=== PATIENT | male | born 1990 | race Caucasian/White ===

== ENCOUNTER 2016-07-21 13:40 | Emergency (ER) | payer OTHER ==
[2016-07-21 14:14] VITALS: BP 105/64
--- NOTE | 2016-07-21 14:37 | UC ---
Ear Complaint HPI - HPI Summary HPI Summary: 26 yo male with left otalgia and decreased hearing x days mild URI symptoms - History of Current Complaint Chief Complaint: UCEar Stated Complaint: EAR COMPLAINT Hx Obtained From: Patient Onset/Duration: Gradual Onset, Lasting Days Severity Initially: Mild Severity Currently: Mild Pain Intensity: 3 Pain Scale Used: 0-10 Numeric Associated Signs/Symptoms: Positive: Hearing Loss, URI Symptoms - Allergies/Home Medications Allergies/Adverse Reactions: Allergies Allergy/AdvReac Type Severity Reaction Status Date / Time No Known Allergies Allergy Verified 07/21/16 14:10 PMH/Surg Hx/FS Hx/Imm Hx Previously Healthy: Yes - Surgical History Surgical History: Yes Surgery Procedure, Year, and Place: Appendectomy, 2006 - Family History Known Family History: Positive: Hypertension - Social History Alcohol Use: None Substance Use Type: None Smoking Status (MU): Never Smoked Tobacco - Immunization History Most Recent Influenza Vaccination: 2015 Most Recent Tetanus Shot: UTD Most Recent Pneumonia Vaccination: N/A Review of Systems Constitutional: Negative Skin: Negative Eyes: Negative ENT: Ear Ache Respiratory: Negative Cardiovascular: Negative Gastrointestinal: Negative Genitourinary: Negative Motor: Negative Neurovascular: Negative Musculoskeletal: Negative Neurological: Negative Psychological: Negative All Other Systems Reviewed And Are Negative: Yes Physical Exam Triage Information Reviewed: Yes Appearance: Well-Appearing, No Pain Distress, Well-Nourished Vital Signs: Initial Vital Signs Temp 98.4 F 07/21/16 14:11 Pulse 72 07/21/16 14:11 Resp 16 07/21/16 14:11 BP 105/64 07/21/16 14:11 Pulse Ox 99 07/21/16 14:11 Eyes: Positive: Conjunctiva Clear ENT: Positive: Pharynx normal, Nasal congestion, TM bulging - Left, TM red - left. Negative: Hearing grossly normal, Tonsillar swelling, Tonsillar exudate, Trismus, Muffled/hoarse voice Neck: Positive: Supple, Nontender, No Lymphadenopathy Respiratory: Positive: Lungs clear, Normal breath sounds, No respiratory distress Cardiovascular: Positive: RRR, No Murmur Bowel Sounds: Positive: Present Musculoskeletal: Positive: Strength Intact, ROM Intact Psychological Exam: Normal Skin Exam: Normal Ear Complaint Course/Dx - Differential Dx/Diagnosis Provider Diagnoses: left otitis media Discharge - Discharge Plan Condition: Stable Disposition: HOME Prescriptions: Amoxicillin (*) [Amoxicillin 875 MG (*)] 875 mg PO BID #20 tab Ibuprofen TAB* [Motrin TAB*] 600 mg PO Q6H PRN #40 tab PRN Reason: Pain Patient Education Materials: Otitis Media (ED) Referrals: No Primary Care Phys,NOPCP [Primary Care Provider] - Additional Instructions: recheck in 2-3 weeks if hearing not back to normal recheck for new or worsening symptoms
== END 2016-07-21 14:39 | disposition home or self-care (01) ==
LOC: UCCORT 13:40
DX: I10 Essential (primary) hypertension (principal); H66.92 Otitis media, unspecified, left ear
CPT/HCPCS: 99212; G0463

== ENCOUNTER 2016-08-14 11:21 | Emergency (ER) | payer OTHER ==
[2016-08-14 11:35] VITALS: BP 109/69
--- NOTE | 2016-08-14 11:47 | UC ---
Throat Pain/Nasal Denis HPI - HPI Summary HPI Summary: complaint of bilateral ear pain that started today nasal congestion for approx 3 days non productive cough sore throat feels fever several time of 100 recently finished a course of antibiotics approx 6 dyas ago for bilateral ear infection slight nausea but no vomiting, denies diarrhea taking ibuprofen dayquil and nyquil without relief - History of Current Complaint Chief Complaint: UCEar Stated Complaint: EAR PAIN Time Seen by Provider: 08/14/16 11:40 Hx Obtained From: Patient - Allergies/Home Medications Allergies/Adverse Reactions: Allergies Allergy/AdvReac Type Severity Reaction Status Date / Time No Known Allergies Allergy Verified 08/14/16 11:36 Home Medications: Home Medications Jabxyseosklbz-Mrcycabfcm-Svhri [Vicks Dayquil/Nyquil Cold] 2 tab PO Q4HR PRN 03/02 [History Confirmed 08/14/16] PMH/Surg Hx/FS Hx/Imm Hx Previously Healthy: Yes - Surgical History Surgical History: Yes Surgery Procedure, Year, and Place: Appendectomy, 2006 - Family History Known Family History: Positive: Hypertension Negative: Cardiac Disease, Diabetes - Social History Occupation: Employed Full-time Lives: With Family Alcohol Use: None Substance Use Type: None Smoking Status (MU): Never Smoked Tobacco - Immunization History Most Recent Influenza Vaccination: 2016 Most Recent Tetanus Shot: UTD Most Recent Pneumonia Vaccination: N/A Review of Systems Constitutional: Fever Skin: Negative Eyes: Negative ENT: Sore Throat, Ear Ache, Nasal Discharge Respiratory: Cough Cardiovascular: Negative Gastrointestinal: Negative Genitourinary: Negative Motor: Negative Neurovascular: Negative Musculoskeletal: Negative Neurological: Negative Psychological: Negative All Other Systems Reviewed And Are Negative: Yes Physical Exam Triage Information Reviewed: Yes Appearance: No Pain Distress, Well-Nourished Vital Signs: Initial Vital Signs Temp 98.9 F 08/14/16 11:33 Pulse 71 08/14/16 11:33 Resp 16 08/14/16 11:33 BP 109/69 08/14/16 11:33 Pulse Ox 99 08/14/16 11:33 Vital Signs Reviewed: Yes Eyes: Positive: Conjunctiva Clear ENT: Positive: Pharyngeal erythema, Nasal congestion, Nasal drainage, TM bulging - bilateral left> right, TM red - bilateral, Other: - slight maxillary sinus tenderness Neck: Positive: No Lymphadenopathy Respiratory: Positive: Lungs clear, Normal breath sounds, No respiratory distress, No accessory muscle use Cardiovascular: Positive: RRR, No Murmur, Pulses Normal Abdomen Description: Positive: Nontender Musculoskeletal: Positive: No Edema Neurological: Positive: Alert Psychological Exam: Normal Skin Exam: Normal Throat Pain/Nasal Course/Dx - Course Course Of Treatment: exam completed. treatment for otitis media failed with amoxicillin. will treat with augmenting and nasal decongestant, NSAIDS - Differential Dx/Diagnosis Differential Diagnosis/HQI/PQRI: Otitis Media, URI Provider Diagnoses: otitis media bilaterally. URI Discharge - Discharge Plan Condition: Stable Disposition: HOME Prescriptions: Amoxicillin/Clavulanate TAB* [Augmentin TAB 875*] 875 mg PO BID #20 tab Oxymetazoline 0.05% NASAL SPR* [Afrin 0.05% NASAL SPRAY*] 1 spray NASAL Q12H #1 btl Patient Education Materials: Otitis Media (ED) Referrals: No Primary Care Phys,NOPCP [Primary Care Provider] - Additional Instructions: Please start antibiotic as directed Increase fluids and rest Take acetaminophen or ibuprofen for fever or pain Please review your discharge instructions. If your symptoms do not improve please call your primary care provider or return to urgent care.
[2016-08-14] MEDS ORDERED: Ibuprofen TAB* 400 MG PO ONE (11:50)
== END 2016-08-14 12:13 | disposition home or self-care (01) ==
LOC: UCEAST 11:21
DX: H66.93 Otitis media, unspecified, bilateral (principal); J06.9 Acute upper respiratory infection, unspecified
CPT/HCPCS: 99212; A9270-GY; G0463

== ENCOUNTER 2016-10-16 17:17 | Emergency (ER) | payer OTHER ==
[2016-10-16 17:52] VITALS: BP 120/79
--- NOTE | 2016-10-16 17:58 | UC ---
Respiratory Complaint HPI - HPI Summary HPI Summary: 26 YEAR OLD MALE PRESENTS WITH SINUS CONGESTION, FEVER, AND SORE THROAT. - History of Current Complaint Chief Complaint: UCGeneralIllness Stated Complaint: COUGH, FEVER, DIZZINESS Time Seen by Provider: 10/16/16 17:57 Hx Obtained From: Patient Onset/Duration: Sudden Onset Severity Initially: Moderate Severity Currently: Moderate Pain Scale Used: 0-10 Numeric - 5 - Allergies/Home Medications Allergies/Adverse Reactions: Allergies Allergy/AdvReac Type Severity Reaction Status Date / Time No Known Allergies Allergy Verified 10/16/16 17:52 PMH/Surg Hx/FS Hx/Imm Hx Previously Healthy: Yes - Surgical History Surgical History: Yes Surgery Procedure, Year, and Place: Appendectomy, 2007 - Family History Known Family History: Positive: Hypertension Negative: Cardiac Disease, Diabetes - Social History Alcohol Use: None Substance Use Type: None Smoking Status (MU): Never Smoked Tobacco - Immunization History Most Recent Influenza Vaccination: 2015 Most Recent Tetanus Shot: UTD Most Recent Pneumonia Vaccination: N/A Review of Systems Constitutional: Negative Skin: Negative Eyes: Negative ENT: Sore Throat, Nasal Discharge, Sinus Congestion, Sinus Pain/Tenderness Respiratory: Negative Cardiovascular: Negative Gastrointestinal: Negative Genitourinary: Negative Motor: Negative Neurovascular: Negative Musculoskeletal: Negative Neurological: Negative Psychological: Negative All Other Systems Reviewed And Are Negative: Yes Physical Exam Triage Information Reviewed: Yes Vital Signs: Initial Vital Signs Temp 37.1 C 10/16/16 17:49 Pulse 66 10/16/16 17:49 Resp 14 10/16/16 17:49 BP 120/79 10/16/16 17:49 Pulse Ox 99 10/16/16 17:49 Eye Exam: Normal ENT: Positive: Pharyngeal erythema, Nasal congestion, Nasal drainage, Other: - BILATERAL MAXILLARY SINUS PRESSURE Dental Exam: Normal Neck exam: Normal Neck: Positive: 1 Respiratory Exam: Normal Cardiovascular Exam: Normal Abdominal Exam: Normal Musculoskeletal Exam: Normal Neurological Exam: Normal Psychological Exam: Normal Skin Exam: Normal UC Diagnostic Evaluation - Laboratory O2 Sat by Pulse Oximetry: 99 Respiratory Course/Dx - Differential Dx/Diagnosis Provider Diagnoses: SINUSITIS Discharge - Discharge Plan Condition: Stable Disposition: HOME Prescriptions: Amoxicillin/Clavulanate TAB* [Augmentin TAB 875*] 875 mg PO BID #20 tab LoraTADine TAB(NF) [Claritin 10 MG TAB(NF)] 10 mg PO DAILY #30 tab Magic M W2 Marco A/Maal/Nyst/Lido* 5 ml SWISH SPIT QID PRN #120 ml PRN Reason: Sore Throat guaiFENesin/CODIEN 100MG-10MG* [Robitussin AC 100Mg-10Mg*] 5 ml PO Q8H PRN #120 udc MDD 15 ML PRN Reason: Cough Patient Education Materials: Sinusitis (ED) Referrals: No Primary Care Phys,NOPCP [Primary Care Provider] -
== END 2016-10-16 18:29 | disposition home or self-care (01) ==
LOC: UCCORT 17:17
DX: J32.9 Chronic sinusitis, unspecified (principal)
CPT/HCPCS: 87651; 99212; G0463

== ENCOUNTER 2017-01-02 12:29 | Emergency (ER) | payer OTHER ==
[2017-01-02 14:43] VITALS: BP 102/68
--- NOTE | 2017-01-02 14:59 | UC ---
Abdominal Pain Male HPI - HPI Summary HPI Summary: Traveled to [facility] and had Diarrhea. Not treated in [place] but symptoms have persisted. Some blood with wiping but no blood or mucus in the stool - History of Current Complaint Chief Complaint: UCAbdominalPain Stated Complaint: STOMACH COMPLIANT Time Seen by Provider: 01/02/17 14:39 Hx Obtained From: Patient Onset/Duration: Sudden Onset - diarrhea, Lasting Days - 6, Worse Since - last 2 days. Timing: Intermittent Episodes Lasting: Severity Initially: Mild Severity Currently: Moderate Location: Diffuse Character: Cramping - with diarrhea Aggravating Factor(s): Nothing Alleviating Factor(s): Meds - OTC imodium Associated Signs And Symptoms: Positive: Nausea, Diarrhea. Negative: Diaphoresis, Fever, Vomiting - Allergies/Home Medications Allergies/Adverse Reactions: Allergies Allergy/AdvReac Type Severity Reaction Status Date / Time No Known Allergies Allergy Verified 01/02/17 14:43 PMH/Surg Hx/FS Hx/Imm Hx Respiratory History: Asthma - Surgical History Surgical History: Yes Surgery Procedure, Year, and Place: Appendectomy, 2006 - Family History Known Family History: Positive: Hypertension Negative: Cardiac Disease, Diabetes - Social History Occupation: Employed Full-time Lives: With Family Alcohol Use: None Substance Use Type: None Smoking Status (MU): Never Smoked Tobacco - Immunization History Most Recent Influenza Vaccination: 2016 Most Recent Tetanus Shot: UTD Most Recent Pneumonia Vaccination: N/A Review of Systems Gastrointestinal: Diarrhea, Nausea Is Patient Immunocompromised?: No All Other Systems Reviewed And Are Negative: Yes Physical Exam Triage Information Reviewed: Yes Appearance: No Pain Distress, Well-Nourished, Ill-Appearing - mild Vital Signs: Initial Vital Signs Temp 98.0 F 01/02/17 14:37 Pulse 65 01/02/17 14:37 Resp 16 01/02/17 14:37 BP 102/68 01/02/17 14:37 Pulse Ox 99 01/02/17 14:37 Vital Signs Reviewed: Yes Eyes: Positive: Conjunctiva Inflamed ENT: Positive: Pharynx normal, TMs normal Neck exam: Normal Respiratory Exam: Normal Cardiovascular Exam: Normal Abdomen Description: Positive: No Organomegaly, Soft. Negative: Nontender - mild discomfort with palpation but no discreet areas of tenderness Musculoskeletal Exam: Normal Neurological Exam: Normal Psychological Exam: Normal Skin Exam: Normal Abd Pain Male Course/Dx - Differential Dx/Clinical Impression Differential Diagnosis/HQI/PQRI: Diverticulitis, Hepatitis, Prostatitis Provider Diagnoses: Travelers diarrhea Discharge - Discharge Plan Condition: Stable Disposition: HOME Prescriptions: Ciprofloxacin TAB* [Cipro 500 MG TAB*] 500 mg PO BID #6 tab Patient Education Materials: Traveler's Diarrhea (ED), Loperamide (By mouth), Ciprofloxacin (By mouth) Referrals: No Primary Care Phys,NOPCP [Primary Care Provider] -
== END 2017-01-02 15:16 | disposition home or self-care (01) ==
LOC: UCCORT 12:29
DX: R19.7 Diarrhea, unspecified (principal); R11.0 Nausea; J45.909 Unspecified asthma, uncomplicated; Z90.89 Acquired absence of other organs
CPT/HCPCS: 99212; G0463

== ENCOUNTER 2017-01-09 20:34 | Emergency (ER) | payer OTHER ==
[2017-01-09 20:49] VITALS: BP 125/79
--- NOTE | 2017-01-09 21:04 | UC ---
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 Continued to work through the rest of the day. Pt just returned from [place] long [employer] [facility] [place] [facility], just finished antibiotic treatment for travelers diarrhea. Pt states he has history of migraine. Pt hit head this morning ~ 6 am. - History Of Current Complaint Chief Complaint: UCHeadInjury Stated Complaint: HEAD INJURY Time Seen by Provider: 01/09/17 20:44 Hx Obtained From: Patient Onset/Duration: Sudden Onset Severity Currently: Mild Severity Initially: Mild Character: Dull Aggravating Factor(s): Other - touch Alleviating Factor(s): Nothing Associated Signs And Symptoms: Positive: Nausea - Risk Factors SDH Risk Factor: Male - Allergies/Home Medications Allergies/Adverse Reactions: Allergies Allergy/AdvReac Type Severity Reaction Status Date / Time No Known Allergies Allergy Verified 01/02/17 14:43 Home Medications: Home Medications NK [No Home Medications Reported] 01/09/17 [History Confirmed 01/09/17] PMH/Surg Hx/FS Hx/Imm Hx Previously Healthy: Yes - Surgical History Surgical History: Yes Surgery Procedure, Year, and Place: Appendectomy, 2006 - Family History Known Family History: Positive: Hypertension Negative: Cardiac Disease, Diabetes - Social History Occupation: Employed Full-time Lives: With Family Alcohol Use: Rare Substance Use Type: None Smoking Status (MU): Never Smoked Tobacco Have You Smoked in the Last Year: No - Immunization History Most Recent Influenza Vaccination: 2015 Most Recent Tetanus Shot: UTD Most Recent Pneumonia Vaccination: N/A Vaccination Up to Date: Yes Review of Systems Constitutional: Negative Skin: Negative Eyes: Negative ENT: Negative Respiratory: Negative Cardiovascular: Negative Gastrointestinal: Negative Genitourinary: Negative Motor: Negative Neurovascular: Negative Musculoskeletal: Negative Neurological: Headache Psychological: Negative Is Patient Immunocompromised?: No All Other Systems Reviewed And Are Negative: Yes Physical Exam Triage Information Reviewed: Yes Appearance: Well-Appearing Vital Signs: Initial Vital Signs Temp 98.3 F 01/09/17 20:45 Pulse 47 01/09/17 20:45 Resp 18 01/09/17 20:45 BP 125/79 01/09/17 20:45 Pulse Ox 98 01/09/17 20:45 Vital Signs Reviewed: Yes Eye Exam: Normal Eyes: Positive: Other: - PERRLA ENT Exam: Normal Dental Exam: Normal Neck exam: Normal Respiratory Exam: Normal Cardiovascular Exam: Normal Musculoskeletal Exam: Normal Neurological Exam: Normal Neurological: Positive: Alert Psychological Exam: Normal Skin Exam: Normal Head Injury Course/Dx - Course Course Of Treatment: I discussed with the pt and pt's to monitor his symptoms and if they worsen then he needs to go to the ER. Pt verbalized understanding and agreed to plan of care. - Differential Dx/Diagnosis Differential Diagnosis/HQI/PQRI: Concussion Without LOC, Contusion, Intracranial Bleed, Skull Fracture Provider Diagnoses: head injury. contusion Discharge - Discharge Plan Condition: Stable Disposition: HOME Patient Education Materials: Head Injury (ED) Referrals: No Primary Care Phys,NOPCP [Primary Care Provider] - If Needed
== END 2017-01-09 21:32 | disposition home or self-care (01) ==
LOC: UCCORT 20:34
DX: S00.93XA Contusion of unspecified part of head, initial encounter (principal); W22.09XA Striking against other stationary object, initial encounter; Y92.9 Unspecified place or not applicable
CPT/HCPCS: 99211; G0463

== ENCOUNTER 2017-03-09 16:38 | Emergency (ER) | payer OTHER | END 2017-03-09 18:40 | disposition left against medical advice (07) | LOC: UCCORT 16:38 | DX: M54.9 Dorsalgia, unspecified (principal); Z53.21 Procedure and treatment not carried out due to patient leaving prior to being seen by health care provider ==

== ENCOUNTER 2017-08-25 19:09 | Emergency (ER) | payer OTHER ==
--- OUTSIDE RECORDS SUMMARY | 2017-08-25 20:03 | XMS REPORT ---
:1990 External Reference #:[id number] Author Organization [facility] Address [address] [place] [address] Phone [phone] Care Team Providers Name Role Phone Lida Sidhu PA Care Team Information Urgent Care Technician Unavailable Payers Type Date Identification Numbers Payment Provider Subscriber Commercial Effective: Policy Number: [id number] [facility] Karl Mendez 2017 PayID: [id number] [place] [address] Problems Date Description Provider Status Onset: 06/08/2017 Hypothyroidism Lida Sidhu PA Active Onset: 07/30/2017 Migraine without aura, not refractory Lida Sidhu PA Active Family History Date Family Member(s) Problem(s) Comments General Migraine General Heart Problems Father's side Mother Fibromyalgia Children 4 3 biological First Brother Testicular Cancer Social History Type Date Description Comments Education Ged Marital Status Lives With Lives With Children x 4 years Diet Healthy, Well Balanced Sleep Typically sleeps 5 hours a night 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 to 12 noon Hand Dominance Right-handed Abuse No history of abuse Cigarette Use Denies Cigarette Use ETOH Use Rarely consumes alcohol Recreational Drug Use Denies Drug Use Smoking Patient is a former smoker 1/2-1 PPD for a few years, quit age 17 Daily Caffeine Consumes on average 2 pots or more of coffee per day Enjoy Exercising Enjoys exercising Sun Exposure Uses sunscreen Seat Belt/Car Seat always uses seat belt Guns in Home Yes, Locked Up Smoke Alarms Yes smoke alarm Currently Active Patient is currently sexually active Age 1st [place] 11 Years Old # Partners in a Lifetime Partners 5-10 Sexual Hx text Heterosexual Allergies, Adverse Reactions, Alerts Date Description Reaction Status Severity Comments 03/08/2017 NKDA active Medications Medication Date Status Form Strength Qnty SIG Indications Ordering Provider Levothyroxine 06/09/ Active Tablets 75mcg 90tabs take one E03.9 Silcoff , Sodium 2018 tablet by Geovanni, mouth every M.D. morning on empty stomach for thyroid Tizanidine HCL 06/08/ Active Tablets 4mg 90tabs 1 tab by Boyd Alcantara 2018 mouth three Geovanni, times a day M.D. as needed for muscle spasms Hydrocodone-Horace 06/08/ Active Tablets 5-325mg 30tabs 1 tablet by Derek5 Quinton, taminophen 2018 mouth up to Geovanni, every 8 hours M.D. as needed for pain Ibuprofen 200 03/07/ Active Tablets 200mg prn Unknown 2017 Levothyroxine 04/16/ Hx Tablets 50mcg 90tabs take one E03.9 Silcoff, Sodium 2017 - tablet by Geovanni, 06/09/ mouth every M.D. 2018 morning on empty stomach for thyroid; blood test due June 2017 Levothyroxine 03/11/ Hx Tablets 25mcg 45tabs 1 every day Silcoff, Sodium 2017 - 20 minutes Geovanni 04/16/ before you M.D. 2018 eat for underactive thyroid. Medications Administered in Office Medication Date Status Form Strength Qnty SIG Indications Ordering Provider B12 Injection Administered Injection Hektor, 018 ALICE Hilton SC/Im Administered Injection Hektor, Injections 018 ALICE Hilton Immunizations CPT Code Status Date Vaccine Lot # U-Flu Given 11/29/2016 Influenza,Unspecified Vital Signs Date Vital Result Comment 08/02/2017 BP Systolic 116 mmHg BP Diastolic 72 mmHg Weight 167.00 lb 07/13/2017 BP Systolic 110 mmHg BP Diastolic 70 mmHg Weight 171.00 lb 06/08/2017 BP Systolic 120 mmHg BP Diastolic 78 mmHg Weight 181.00 lb 04/14/2017 BP Systolic 110 mmHg BP Diastolic 68 mmHg Weight 180.00 lb 03/08/2017 BP Systolic 122 mmHg BP Diastolic 64 mmHg Height 64.25 inches 5'4.25" Weight 174.00 lb BMI (Body Mass Index) 29.6 kg/m2 Results Test Date Test Result H/L Range Note Laboratory test finding 07/20/2017 Cortisol,Random 9.7 g/dL . 1, 2 Renin Plasma 1.452 ng/mL/hr 0.167-5.380 1, 3 Aldosterone 8.6 ng/dL 0.0-30.0 1, 4 21 Hydroxylase Antibodies < 1.0 U/mL . 1, 5 Acth,Plasma 37.1 pg/mL 7.2-63.3 1, 6 Iron & Iron Binding Capacity 07/14/2017 Iron 57 g/dL 50-212 Unsaturated Iron Binding 255 g/dL Total Iron Binding Capacity 312 g/dL 250-450 Transferrin 223 mg/dL 203-362 % Iron Saturation 18 % 15-55 Laboratory test finding 07/14/2017 Cyclic Citrullinated Pep <15.6 U 7 Igg Lead 07/14/2017 Lead,Venous, B 1.6 g/dL 0.0-4.9 8 Submitting Laboratory Phone [phone] Mojgan Tucker Comprehensive 07/14/2017 Ebv Capsid Ag IgG Ab Positive Negative Ebv Capsid Ag IgM Ab Negative Negative Mojgan-Tucker Nuclear Antigen Positive Negative Mojgan-Tucker Virus Interp See Comment 10 Laboratory test finding 07/14/2017 Lyme Disease Serology Negative Negative 11 Testosterone Total 378.52 ng/dL 240-950 Immunoglobulins Serum Quant 07/14/2017 Immunoglobulin G 1080 mg/dL 767 - 1590 12 Immunoglobulin M 47 mg/dL 37 - 286 Immunoglobulin A 219 mg/dL 61 - 356 Celiac Panel 07/14/2017 Tissue Transglutaminase IgA Ab <1.2 U/mL 13 Immunoglobulin A 210 mg/dL 61 - 356 Celiac Interpretation See Comment 14 Laboratory test finding 07/14/2017 Hemoglobin A1c (Glyco HGB) 5.1 % 4.0- 5.6 15 Vitamin D Total 25(Oh) 28.5 ng/mL 20-50 Cortisol 2.71 g/dL 16 Anti Nuclear Antibody 0.7 U 17 Comp Metabolic Panel 07/14/2017 Sodium 138 mmol/L Low 139-145 Potassium 4.0 mmol/L 3.5-5.0 Chloride 104 mmol/L 101-111 Co2 Carbon Dioxide 26 mmol/L 22-32 Anion Gap 8 mmol/L 2-11 Glucose 114 mg/dL High 70-100 Blood Urea Nitrogen 12 mg/dL 6-24 Creatinine 0.92 mg/dL 0.67-1.17 BUN/Creatinine Ratio 13.0 8-20 Calcium 9.1 mg/dL 8.6-10.3 Total Protein 6.5 g/dL 6.4-8.9 Albumin 4.2 g/dL 3.2-5.2 Globulin 2.3 g/dL 2-4 Albumin/Globulin Ratio 1.8 1-3 Total Bilirubin 0.50 mg/dL 0.2-1.0 Alkaline Phosphatase 44 U/L 34-104 Alt 23 U/L 7-52 Ast 22 U/L 13-39 Egfr Non- 98.0 >60 Egfr 126.0 >60 18 CBC Auto Diff 07/14/2017 White Blood Count 5.6 10^3/uL 3.5-10.8 Red Blood Count 4.98 10^6/uL 4.0-5.4 Hemoglobin 14.2 g/dL 14.0-18.0 Hematocrit 42 % 42-52 Mean Corpuscular Volume 84 fL 80-94 Mean Corpuscular Hemoglobin 29 pg 27-31 Mean Corpuscular HGB Conc 34 g/dL 31-36 Red Cell Distribution Width 13 % 10.5-15 Platelet Count 146 10^3/uL Low 150-450 Mean Platelet Volume 10.4 um3 7.4-10.4 Abs Neutrophils 2.7 10^3/uL 1.5-7.7 Abs Lymphocytes 2.0 10^3/uL 1.0-4.8 Abs Monocytes 0.5 10^3/uL 0-0.8 Abs Eosinophils 0.4 10^3/uL 0-0.6 Abs Basophils 0 10^3/uL 0-0.2 Abs Nucleated RBC 0 10^3/uL Granulocyte % 48.1 % 38-83 Lymphocyte % 36.5 % 25-47 Monocyte % 8.2 % High 0-7 Eosinophil % 6.6 % High 0-6 Basophil % 0.6 % 0-2 Nucleated Red Blood Cells % 0.1 Laboratory test finding 07/14/2017 Vitamin B12 310 pg/mL 180-914 19 Folic Acid (Folate) > 20.00 ng/mL >3.99 Laboratory test finding 06/28/2017 Thyroxine 8.63 g/mL 6.09-12.23 TSH (Thyroid Stim Horm) 0.62 mcIU/mL 0.34-5.60 T3 Total 1.08 ng/mL 0.87-1.78 Laboratory test finding 06/08/2017 TSH (Thyroid Stim Horm) 3.91 mcIU/mL 0.34-5.60 Thyroxine 5.79 g/mL Low 6.09-12.23 T3 Total 1.08 ng/mL 0.87-1.78 Laboratory test finding 04/15/2017 TSH (Thyroid Stim 13.17 mcIU/mL High 0.34-5.60 Horm) Thyroxine 5.99 g/mL Low 6.09-12.23 Comp Metabolic Panel 03/08/2017 Sodium 138 mmol/L 133-145 Potassium 4.9 mmol/L 3.5-5.0 Chloride 104 mmol/L 101-111 Co2 Carbon Dioxide 29 mmol/L 22-32 Anion Gap 5 mmol/L 2-11 Glucose 76 mg/dL 70-100 Blood Urea Nitrogen 12 mg/dL 6-24 Creatinine 1.14 mg/dL 0.67-1.17 BUN/Creatinine Ratio 10.5 8-20 Calcium 9.6 mg/dL 8.6-10.3 Total Protein 6.9 g/dL 6.4-8.9 Albumin 4.4 g/dL 3.2-5.2 Globulin 2.5 g/dL 2-4 Albumin/Globulin Ratio 1.8 1-3 Total Bilirubin 0.60 mg/dL 0.2-1.0 Alkaline Phosphatase 45 U/L 34-104 Alt 24 U/L 7-52 Ast 22 U/L 13-39 Egfr Non- 77.1 >60 Egfr 99.1 >60 20 CBC Auto Diff 03/08/2017 White Blood Count 5.5 10^3/uL 3.5-10.8 Red Blood Count 5.45 10^6/uL High 4.0-5.4 Hemoglobin 15.9 g/dL 14.0-18.0 Hematocrit 46 % 42-52 Mean Corpuscular Volume 84 fL 80-94 Mean Corpuscular Hemoglobin 29 pg 27-31 Mean Corpuscular HGB Conc 35 g/dL 31-36 Red Cell Distribution Width 13 % 10.5-15 Platelet Count 153 10^3/uL 150-450 Mean Platelet Volume 10 um3 7.4-10.4 Abs Neutrophils 2.4 10^3/uL 1.5-7.7 Abs Lymphocytes 2.1 10^3/uL 1.0-4.8 Abs Monocytes 0.6 10^3/uL 0-0.8 Abs Eosinophils 0.4 10^3/uL 0-0.6 Abs Basophils 0 10^3/uL 0-0.2 Abs Nucleated RBC 0 10^3/uL Granulocyte % 44.3 % 38-83 Lymphocyte % 38.1 % 25-47 Monocyte % 10.2 % High 1-9 Eosinophil % 6.5 % High 0-6 Basophil % 0.9 % 0-2 Nucleated Red Blood Cells % 0.1 Laboratory test finding 03/08/2017 TSH (Thyroid Stim 23.18 mcIU/mL High 0.34-5.60 Horm) T3 Free 3.20 pg/mL 2.5-3.9 Free T4 (Free Thyroxine) 0.65 ng/dL 0.61-1.12 Thyroxine 5.20 g/mL Low 6.09-12.23 1 R53.83, E27.49 2 Cortisol AM 6.2 - 19.4 Cortisol PM 2.3 - 11.9 Performed at: [address] [id number] Compressor Mechanic: Amanda Lujan MD, Phone: [phone] This test was developed and its performance characteristics determined by [facility]. It has not been cleared or approved by the Food and Drug Administration. Performed at: [facility] [address] [place] [id number] Compressor Mechanic: Benja Mcleod MD, Phone: [phone] Performed at: [address] [id number] Compressor Mechanic: Jason King MD, Phone: [phone] Performed at: [address] [id number] Compressor Mechanic: Amanda Lujan MD, Phone: [phone] This test was developed and its performance characteristics determined by [facility]. It has not been cleared or approved by the Food and Drug Administration. 5 Reference Range: All Ages: < 1.0 6 ACTH reference interval for samples collected between 7 and 10 AM. 7 REFERENCE VALUE <20.0 (Negative) Test Performed by: [address] [id number] 8 ADDITIONAL INFORMATION Testing performed by Inductively Coupled Plasma-Mass Spectrometry (ICP-MS). This test was developed and its performance characteristics determined by [facility] in a manner consistent with CLIA requirements. This test has not been cleared or approved by the U.S. Food and Drug Administration. 9 Test Performed by: [place] [address] 10 RESULT: Results suggest past infection. ADDITIONAL INFORMATION In most populations, at least 90% of the adult population will have been infected with EBV sometime in the past and therefore, will be positive for anti-VCA/IgG and anti- EBNA. Antibodies to EBNA develop 6-8 weeks after primary infection and remain present for life. Presence of VCA/ IgM antibodies indicates recent primary infection with EBV. Test Performed by: [facility] [place] [address] 11 No evidence of antibodies to B. burgdorferi detected. False negative results may occur in recently infected patients (<=2 weeks) due to low or undetectable antibody levels to B. burgdorferi. If recent exposure is suspected, a second sample should be collected and tested in 2-4 weeks. Test Performed by: [place] [address] 12 Test Performed by: [place] [address] 13 REFERENCE VALUE <4.0 (Negative) Test Performed by: [place] [address] 14 Negative serology. Celiac disease unlikely. However, approximately 10% of patients with celiac disease are seronegative. Also, patients who are already adhering to a gluten-free diet may be seronegative. If celiac disease is highly clinically suspected, consider HLA-DQ typing. Test Performed by: [place] [address] 15 Therapeutic target for the treatment of diabetes mellitus patients is <7% HBA1C, and in selective patients <6.0%. Please refer to [place] [employer] diabetic care guidelines for further information. 16 AM 8.7-22.4 PM <10 17 REFERENCE VALUE <=1.0 (Negative) Test Performed by: [facility] [address] [place] [address] 18 Because ethnic data is not always readily available, this report includes an eGFR for both -Americans and non- Americans. The National Kidney Disease Education Program (NKDEP) does not endorse the use of the MDRD equation for patients that are not between the ages of 18 and 70, are , have extremes of body size, muscle mass, or nutritional status, or are non- or non-. According to the National Kidney Foundation, irrespective of diagnosis, the stage of the disease is based on the level of kidney function: Stage Description GFR(mL/min/1.73 m(2)) 1 Kidney damage with normal or decreased GFR 90 2 Kidney damage with mild decrease in GFR 60-89 3 Moderate decrease in GFR 30-59 4 Severe decrease in GFR 15-29 5 Kidney failure <15 (or dialysis) 19 Normal Range 180 to 914 Indeterminate Range 145 to 180 Deficient Range <145 20 Because ethnic data is not always readily available, this report includes an eGFR for both -Americans and non- Americans. The National Kidney Disease Education Program (NKDEP) does not endorse the use of the MDRD equation for patients that are not between the ages of 18 and 70, are , have extremes of body size, muscle mass, or nutritional status, or are non- or non-. According to the National Kidney Foundation, irrespective of diagnosis, the stage of the disease is based on the level of kidney function: Stage Description GFR(mL/min/1.73 m(2)) 1 Kidney damage with normal or decreased GFR 90 2 Kidney damage with mild decrease in GFR 60-89 3 Moderate decrease in GFR 30-59 4 Severe decrease in GFR 15-29 5 Kidney failure <15 (or dialysis) Procedures Date CPT Code Description Status 08/02/2017 09706 SC/Im Injections Completed Encounters Type Date Location Provider CPT E/M Dx Office Visit 08/02/2017 4:30p [place] [address] R53.83 M35.7 E03.9 Office Visit 07/13/2017 2:00p [place] [address] R53.83 E03.9 R78.71 Office Visit 06/08/2017 1:40p [place] [address] M54.5 E03.9 Office Visit 04/14/2017 4:40p Main Office [place] Louis[facility] [place].A. [address]872 R94.6 R94.6 R53.83 R53.83 Office Visit 03/08/2017 9:40a Main Office Medina Louis P.A. [address]876 R53.83 D48.5 Z00.01 Z72.820 R94.6 Plan of Care 08/02/2017 - Lida Sidhu PAR53.83 Other fatigueComments:Severe fatigue of uncertain etiology. Lab workup thus far has been normal. B12 was low normal despite oral supplements so B12 injections was given today. Will refer for sleep study to r/o apnea or other sleep disorder which may be contributing to daytime fatigue. Will also refer to rheumatology due tohypermobility hx, r/o autoimmune disorder.Referral:Fidel Thrasher M.D., [id number] Hypermobility syndromeComments:See #1Referral:Fidel Thrasher M.D., [id number] Hypothyroidism, unspecifiedComments:Recent TSH in normal range. Continue same dose of levothyroxine.
[2017-08-25 20:06] VITALS: BP 120/67
[2017-08-25] MEDS ORDERED: Amoxicillin PO (*) 500 MG CAP PO ONE (20:12)
[2017-08-25] MEDS ORDERED: HYDROcodone/ACETAMIN 5-325 MG* 1 TAB PO ONE (20:13)
--- NOTE | 2017-08-25 20:15 | UC ---
[facility] HPI - HPI Summary HPI Summary: painful teeth number 8 and 9---with red swollen and tender gums - History of Current Complaint Chief Complaint: UCDentalProblem Stated Complaint: DENTAL COMPLAINT Time Seen by Provider: 08/25/17 20:07 Hx Obtained From: Patient Onset/Duration: Sudden Onset, Lasting Days - 2, Still Present Severity: Moderate Alleviating Factor(s): Topical Meds Related History: Previous Dental Care on Same Tooth, Swelling - Allergies/Home Medications Allergies/Adverse Reactions: Allergies Allergy/AdvReac Type Severity Reaction Status Date / Time No Known Allergies Allergy Verified 08/25/17 20:06 Home Medications: Home Medications Ibuprofen TAB* [Motrin TAB* 800 MG] 800 mg PO Q6H 08/25/17 [History Confirmed ] Levothyroxine TAB* [Synthroid TAB*] 75 mcg PO 0800 08/25/17 [History Confirmed 08/25/17] PMH/Surg Hx/FS Hx/Imm Hx Previously Healthy: No Endocrine History: Hypothyroidism - Surgical History Surgical History: Yes Surgery Procedure, Year, and Place: Appendectomy 2006 - Family History Known Family History: Positive: Hypertension Negative: Cardiac Disease, Diabetes - Social History Occupation: Employed Full-time Lives: With Family Alcohol Use: Rare Substance Use Type: None Smoking Status (MU): Never Smoked Tobacco Have You Smoked in the Last Year: No - Immunization History Most Recent Influenza Vaccination: 2015 Most Recent Tetanus Shot: UTD Most Recent Pneumonia Vaccination: N/A Vaccination Up to Date: Yes Review of Systems Constitutional: Negative Skin: Negative Eyes: Negative ENT: Dental Pain Respiratory: Negative Cardiovascular: Negative Gastrointestinal: Negative Genitourinary: Negative Motor: Negative Neurovascular: Negative Musculoskeletal: Negative Neurological: Negative Psychological: Negative Is Patient Immunocompromised?: No All Other Systems Reviewed And Are Negative: Yes Physical Exam Triage Information Reviewed: Yes Appearance: Well-Appearing, No Pain Distress, Well-Nourished Vital Signs: Initial Vital Signs Temp 98.3 F 08/25/17 20:01 Pulse 60 08/25/17 20:01 Resp 18 08/25/17 20:01 BP 120/67 08/25/17 20:01 Pulse Ox 100 08/25/17 20:01 Vital Signs Reviewed: Yes Eye Exam: Normal Eyes: Positive: Conjunctiva Clear ENT Exam: Normal ENT: Positive: Normal ENT inspection, Hearing grossly normal, Pharynx normal, TMs normal, Dental tenderness, Uvula midline. Negative: Nasal congestion, Trismus, Muffled voice, Hoarse voice, Sinus tenderness Dental Exam: Normal Dental: Positive: Percussion Tenderness @ - 8/9, Abscess @ - above 8/9 Neck exam: Normal Neck: Positive: Supple, Nontender, No Lymphadenopathy Respiratory Exam: Normal Respiratory: Positive: Chest non-tender, No respiratory distress, No accessory muscle use Cardiovascular Exam: Normal Cardiovascular: Positive: RRR, Pulses Normal, Brisk Capillary Refill Musculoskeletal Exam: Normal Musculoskeletal: Positive: Strength Intact, ROM Intact, No Edema Neurological Exam: Normal Neurological: Positive: Alert, Muscle Tone Normal Psychological Exam: Normal Skin Exam: Normal Dental Complaint Course/Dx - Course Course Of Treatment: Amoxicillin, hydrocodone, warm saltwater rinses, follow with dentist AUNG recheck when necessary - Differential Dx/Diagnosis Provider Diagnoses: dental pain with abcess number 8&9 Discharge - Sign-Out/Discharge Documenting (check all that apply): Patient Departure - Discharge Plan Condition: Stable Disposition: HOME Prescriptions: Amoxicillin PO (*) [Amoxicillin 500 MG CAP*] 500 mg PO TID #30 cap Hydrocodone/Acetaminophen [Hydrocodone-Acetamin 5-325 mg] 1 each PO Q6H PRN #10 tablet MDD 4 PRN Reason: pain Patient Education Materials: Dental Abscess (ED) Referrals: Lida Ro [Primary Care Provider] - Additional Instructions: Follow with Dentist aung-- - Billing Disposition and Condition Condition: STABLE Disposition: Home
[2017-08-25] MEDS: Amoxicillin PO (*) 500 MG CAP PO ONE (20:30)
== END 2017-08-25 20:34 | disposition home or self-care (01) ==
LOC: UCCORT 19:09
DX: K04.7 Periapical abscess without sinus (principal); K08.89 Other specified disorders of teeth and supporting structures; E03.9 Hypothyroidism, unspecified
CPT/HCPCS: 99213; A9270-GY; G0463

== ENCOUNTER 2017-11-11 12:36 | Emergency (ER) | payer OTHER ==
--- NOTE | 2017-11-11 13:57 | UC ---
Back Pain HPI - HPI Summary HPI Summary: Pt present with recurrence of sacral back pain. 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 Pt states intermittently has flares. States this starte d 3 days ago - no leg weakness, bowel/bladder changes. mild paresthesia left leg. No falls. no direct trauma.no analgesia taken. Pt with appt with pcp next Tuesday. Pt states has applied heat without relief drive self here Pt's medications reviewed this visit - History of Current Complaint Stated Complaint: BACK PAIN Time Seen by Provider: 11/11/17 13:52 Hx Obtained From: Patient, Other: - istop checked - Allergies/Home Medications Allergies/Adverse Reactions: Allergies Allergy/AdvReac Type Severity Reaction Status Date / Time No Known Allergies Allergy Verified 11/11/17 14:16 PMH/Surg Hx/FS Hx/Imm Hx Previously Healthy: Yes - Surgical History Surgical History: Yes Surgery Procedure, Year, and Place: Appendectomy 2006 - Family History Known Family History: Positive: Hypertension Negative: Cardiac Disease, Diabetes - Social History Occupation: Employed Full-time Lives: With Family Alcohol Use: Rare Substance Use Type: None Smoking Status (MU): Never Smoked Tobacco Have You Smoked in the Last Year: No - Immunization History Most Recent Influenza Vaccination: 2016 Most Recent Tetanus Shot: UTD Most Recent Pneumonia Vaccination: N/A Vaccination Up to Date: Yes Review of Systems Constitutional: Negative Skin: Negative Musculoskeletal: Other: - back, sacral pain Neurological: Paresthesia - LLE All Other Systems Reviewed And Are Negative: No Physical Exam - Summary Physical Exam Summary: Vital Signs Reviewed: Yes A+Ox3, no distress Eyes: Conjunctiva Clear, ANGEL LUIS. EOM intact and full ENT: Hearing grossly normal TM x 2 clear, mmoist, uvula midline, no exudate, no erythema Neck: Positive: Supple Respiratory: Positive: No respiratory distress, No accessory muscle use + CTA throughout no w/r Cardiovascular: RRR nl s1, s2 no m/r CBT <2 sec 2+ PT b/l abd soft + BS nt/nd no guarding, no distension Musculoskeletal Exam: No spinous process pain c/t/l/sl full AROM c spine + TTP left low sacral area paraspinal + SLE b/l + flex/ext knee, ankle Neurological: Positive: Alert, + sensation throughout b./l equal 2+ patellar b/ l without clonus Psychological: Positive: Normal Response To Family Skin: Positive: no rash, no ecchymosis Triage Information Reviewed: Yes Back Pain Course/Dx - Course Course Of Treatment: Pt with recurrent sacral pain. Pt csm intact. reports parethesia left leg. pt drove self to [facility]. declined toradol. motrin. heat. stretch. flexeril - strict precaution. pt declined work note. pcp f/u next tue. return to ED precautions given - Differential Dx/Diagnosis Provider Diagnoses: back muscle spasm with paresthesia LLE Discharge - Sign-Out/Discharge Documenting (check all that apply): Patient Departure All imaging exams completed and their final reports reviewed: No Studies - Discharge Plan Condition: Stable Disposition: HOME Prescriptions: Cyclobenzaprine TAB* [Flexeril 10 MG TAB*] 10 mg PO BID PRN #10 tab PRN Reason: muscle spasm Patient Education Materials: Acute Low Back Pain (ED), Lumbar Radiculopathy (ED ) Referrals: Nahum SORENSEN,Lida Rosas [Primary Care Provider] - Additional Instructions: - Okay to alternate ibuprofen (Advil, Motrin) 600mg and Tylenol product (Tylenol ) every 3hours as needed for pain. Take with food. Do NOT take for more than 4- 5 days. -Take flexeril - muscle relaxer as prescribed - do not drive, operate machinery or drink alcohol while taking this medication as it may cause sedation -Apply moist heat to your back for 20 minutes at a time, 4-5 times a day. Once your muscles are warm, slow gentle stretching exercises are important - When lying on your back, place a pillow under your knees. If you are on your side, place a pillow between your knees - You have been referred to physical therapy - you may take this referral to any physical therapy provider -Contact your doctor today to arrange a follow-up appointment next week. -If you pain is uncontrolled, leg weakness, or you lose control of your bladder - go immediately to an emergency department for further treatment - Keep your appointment as scheduled with your primary doctor on Tuesday. - Billing Disposition and Condition Condition: STABLE Disposition: Home
[2017-11-11] MEDS ORDERED: Ketorolac INJ* 30 MG/ML 1 ML VIAL IM ONE (14:07)
[2017-11-11 14:16] VITALS: BP 109/79
[2017-11-11] MEDS ORDERED: Ibuprofen TAB* 400 MG PO ONE (14:20)
== END 2017-11-11 14:59 | disposition home or self-care (01) ==
LOC: UCCORT 12:36
DX: M62.830 Muscle spasm of back (principal); R20.2 Paresthesia of skin
CPT/HCPCS: 99212; A9270-GY; G0463

== ENCOUNTER 2018-01-14 12:56 | Emergency (ER) | payer OTHER ==
[2018-01-14 14:02] VITALS: BP 119/72
[2018-01-14] MEDS ORDERED: predniSONE TAB* 20 MG PO ONE (14:15)
--- NOTE | 2018-01-14 14:20 | ED ---
Skin Complaint - HPI Summary HPI Summary: 27 yr old male with the complaint of rash on trunk, arms, and lower left side of lip with some swelling. The patient states his mother in law changed the dryer sheets a week ago and this seemed to activate the present issue. No SOB, no tongue or throat swelling. - History of Current Complaint Chief Complaint: UCRash Time Seen by Provider: 01/14/18 13:59 Stated Complaint: SKIN CONCERN Pain Intensity: 0 - Allergy/Home Medications Allergies/Adverse Reactions: Allergies Allergy/AdvReac Type Severity Reaction Status Date / Time No Known Allergies Allergy Verified 01/14/18 14:03 PMH/Surg Hx/FS Hx/Imm Hx Endocrine/Hematology History: Reports: Hx Thyroid Disease - hypothyroidism Denies: Hx Diabetes Cardiovascular History: Denies: Hx Hypertension, Hx Pacemaker/ICD Respiratory History: Reports: Hx Asthma - as child History: Denies: Hx Dialysis, Hx Renal Disease Sensory History: Denies: Hx Hearing Aid Psychiatric History: Denies: Hx Panic Disorder - Surgical History Surgery Procedure, Year, and Place: Appendectomy 2006 Infectious Disease History: No Infectious Disease History: Denies: Traveled Outside the [place] in Last 30 Days - Family History Known Family History: Positive: Hypertension, Other - lupus, fibromyalgia Negative: Cardiac Disease, Diabetes - Social History Alcohol Use: Rare Substance Use Type: Reports: None Smoking Status (MU): Never Smoked Tobacco Have You Smoked in the Last Year: No Review of Systems Constitutional: Negative Positive: Rash, Other - itching All Other Systems Reviewed And Are Negative: Yes Physical Exam Triage Information Reviewed: Yes Vital Signs On Initial Exam: Initial Vitals Temp Pulse Resp BP Pulse Ox 97.7 F 56 16 119/72 100 01/14/18 14:00 01/14/18 14:00 01/14/18 14:00 01/14/18 14:00 01/14/18 14:00 Vital Signs Reviewed: Yes Appearance: Positive: Well-Appearing, No Pain Distress Skin: Positive: Other - urticaria present on trunk and arms. ENT: Positive: Pharynx normal, Uvula midline. Negative: Muffled voice, Hoarse voice Respiratory/Lung Sounds: Positive: Clear to Auscultation, Breath Sounds Present. Negative: Stridor Cardiovascular: Positive: RRR. Negative: Murmur Abdomen Description: Positive: Nontender Musculoskeletal: Positive: Strength/ROM Intact Neurological: Positive: Sensory/Motor Intact, Alert, Oriented to Person Place, Time, CN Intact II-III Psychiatric: Positive: Normal - Notus Coma Scale Best Eye Response: 4 - Spontaneous Best Motor Response: 6 - Obeys Commands Best Verbal Response: 5 - Oriented Coma Scale Total: 15 Diagnostics - Vital Signs Vital Signs Temp Pulse Resp BP Pulse Ox 01/14/18 14:00 97.7 F 56 16 119/72 100 - Laboratory Lab Statement: Any lab studies that have been ordered have been reviewed, and results considered in the medical decision making process. Course/Dx - Course Course Of Treatment: 27 yr old with urticaria. Pred given here. he has benadryl at home he will take as he is driving. Rx medrol dose gage. - Diagnoses Provider Diagnoses: Urticaria Discharge - Sign-Out/Discharge Documenting (check all that apply): Patient Departure All imaging exams completed and their final reports reviewed: No Studies - Discharge Plan Condition: Good Disposition: HOME Prescriptions: methylPREDNISolone [Medrol Dosepak 4 MG*] 4 mg PO .SEE GAGE INSTRUCTION #1 pkt Patient Education Materials: Urticaria (ED) Referrals: Nahum SORENSEN,Lida Rosas [Primary Care Provider] - 2 Days - Billing Disposition and Condition Condition: GOOD Disposition: Home
== END 2018-01-14 14:35 | disposition home or self-care (01) ==
LOC: UCCORT 12:56
DX: L50.9 Urticaria, unspecified (principal)
CPT/HCPCS: 99202; G0463; J7512

== ENCOUNTER 2019-01-24 09:25 | Emergency (ER) | payer BC, OTHER ==
[2019-01-24 09:44] VITALS: BP 119/71
--- NOTE | 2019-01-24 10:31 | UC ---
Truncal Trauma HPI - HPI Summary HPI Summary: left side rib pain x 1 day pain is 2 out of 10 , worse with movements and deep breathing + sob , no cough , no fever , no chills no known injury , has been working out at the gym concern about pneumo - History Of Current Complaint Chief Complaint: UCBackPain Stated Complaint: SOB,BACK PAIN Time Seen by Provider: 01/24/19 09:40 Hx Obtained From: Patient, Family/Salesperson Parts Onset/Duration: Gradual Onset, Lasting Days - 1, Still Present Severity Initially: Moderate Severity Currently: Moderate Pain Intensity: 2 Mechanism Of Injury: Unknown Aggravating Factor(s): Movement, Deep Breathing Alleviating factor(s): Nothing Associated Signs And Symptoms: Positive: SOB. Negative: Chest Pain, Cough, Hematuria, Abdominal Pain, Fever, Nausea, Vomiting - Allergies/Home Medications Allergies/Adverse Reactions: Allergies Allergy/AdvReac Type Severity Reaction Status Date / Time No Known Allergies Allergy Verified 01/24/19 09:40 PMH/Surg Hx/FS Hx/Imm Hx Previously Healthy: Yes - Surgical History Surgical History: Yes Surgery Procedure, Year, and Place: Appendectomy, 2007 - Family History Known Family History: Positive: Hypertension, Other - lupus, fibromyalgia Negative: Cardiac Disease, Diabetes - Social History Alcohol Use: Rare Substance Use Type: None Smoking Status (MU): Former Smoker Length of Time of Smoking/Using Tobacco: ~1/2 PPD x 10 Years Have You Smoked in the Last Year: No When Did the Patient Quit Smoking/Using Tobacco: 2007 - Immunization History Most Recent Influenza Vaccination: 2016 Most Recent Tetanus Shot: UTD Most Recent Pneumonia Vaccination: N/A Vaccination Up to Date: Yes Review of Systems All Other Systems Reviewed And Are Negative: Yes Is Patient Immunocompromised?: No Physical Exam Triage Information Reviewed: Yes Appearance: Well-Appearing, Well-Nourished, Pain Distress Vital Signs: Initial Vital Signs Temp 98.3 F 01/24/19 09:39 Pulse 63 01/24/19 09:39 Resp 16 01/24/19 09:39 BP 119/71 01/24/19 09:39 Pulse Ox 99 01/24/19 09:39 Vital Signs Reviewed: Yes Eye Exam: Normal Eyes: Positive: Conjunctiva Clear ENT: Positive: Normal ENT inspection, Hearing grossly normal, Pharynx normal Neck: Positive: Supple, Nontender, No Lymphadenopathy Respiratory: Positive: Chest non-tender, Lungs clear, Normal breath sounds Cardiovascular: Positive: RRR, No Murmur, Pulses Normal, Other: - left side rib pain , increase pain with rotation Abdominal Exam: Normal Abdomen Description: Positive: Nontender, Soft Bowel Sounds: Positive: Present Diagnostics - Radiology No standard instances Radiology Interpretation Completed By: Radiologist Summary of Radiographic Findings: chest xray report : clear chest, no pneumothorax Truncal Trauma Course/Dx - Differential Dx/Diagnosis Provider Diagnosis: Intercostal muscle strain Discharge ED - Sign-Out/Discharge Documenting (check all that apply): Patient Departure All imaging exams completed and their final reports reviewed: Yes - Discharge Plan Condition: Stable Disposition: HOME Patient Education Materials: Muscle Strain (ED) Referrals: Lida Sidhu PA [Primary Care Provider] - If Needed - Billing Disposition and Condition Condition: STABLE Disposition: Home
== END 2019-01-24 10:29 | disposition home or self-care (01) ==
LOC: UCCORT 09:25
DX: S29.011A Strain of muscle and tendon of front wall of thorax, initial encounter (principal); Z87.891 Personal history of nicotine dependence; X58.XXXA Exposure to other specified factors, initial encounter; Y93.89 Activity, other specified; Y92.39 Other specified sports and athletic area as the place of occurrence of the external cause
CPT/HCPCS: 71046; 99211; G0463